=== PATIENT | female | born 1950 | race Caucasian/White ===

== ENCOUNTER 2021-04-15 06:03 | Day surgery (SDC) | payer BC ==
[2021-04-10 10:23] VITALS: BMI 25.7
[2021-04-15] MEDS ORDERED: SODIUM CHLORIDE 0.9% P/F 10 ML VIAL IJ ONE (06:49)
[2021-04-15] MEDS ORDERED: MIDAZOLAM HCL 2 MG/2 ML SINGLE DOSE VIAL ONE ×3 (06:49→08:26)
[2021-04-15] MEDS ORDERED: BUPIVACAINE HCL 50 ML ONE ×2 (06:49→07:11)
[2021-04-15] MEDS ORDERED: BUPIVACAINE LIPOSOME/PF (EXPAREL) 266 MG/20 ML VIAL ONE (06:49)
[2021-04-15] MEDS ORDERED: TRANEXAMIC ACID 1000 MG/10 ML VIAL IVPUSH ONE (06:54)
[2021-04-15] MEDS ORDERED: CEFAZOLIN 2 GM in DEXTROSE 5%-WATER - 50 ML IVPB ONE (06:54)
[2021-04-15] MEDS ORDERED: CELECOXIB 200 MG CAPSULE PO ONE (06:54)
[2021-04-15] MEDS ORDERED: fentaNYL CITRATE 250 MCG/5 ML VIAL ONE (07:06)
[2021-04-15] MEDS ORDERED: PROPOFOL 20 ML ONE ×3 (07:07)
[2021-04-15] MEDS ORDERED: VANCOMYCIN 1,000 MG VIAL (RESTRICTED TO ID ONLY) ONE (07:14)
[2021-04-15] MEDS ORDERED: ceFAZolin SODIUM 1 GM VIAL ONE ×3 (07:15→23:17)
[2021-04-15] MEDS ORDERED: TRANEXAMIC ACID 1000 MG/10 ML VIAL ONE ×2 (08:40→09:57)
[2021-04-15] MEDS ORDERED: KETOROLAC TROMETHAMINE 30 MG/1 ML VIAL ONE ×2 (08:40→10:06)
[2021-04-15] MEDS ORDERED: ONDANSETRON 4 MG/2 ML VIAL ONE (08:40)
[2021-04-15] MEDS ORDERED: DEXAMETHASONE SOD PHOSPHATE 4 MG/1 ML VIAL ONE (08:40)
[2021-04-15] MEDS ORDERED: ACETAMINOPHEN INJECTION 100 ML IVPB ONE (10:06)
[2021-04-15] MEDS ORDERED: ONDANSETRON 4 MG/2 ML VIAL IVPUSH PRN ×3 (10:19→19:34)
[2021-04-15] MEDS ORDERED: MAG HYDROX/AL HYDROX/SIMETH 30 ML UNIT-DOSE CUP PO PRN (10:19)
[2021-04-15] MEDS ORDERED: LACTATED RINGERS SOLUTION 1,000 ML IV SCH ×2 (10:30→10:45)
[2021-04-15] MEDS: ACETAMINOPHEN 1000 MG/100 ML BAG IVPB ONE ×2 (10:40→21:31)
[2021-04-15] MEDS: CEFAZOLIN 2 GM in DEXTROSE 5%-WATER - 50 ML IVPB SCH (16:17)
[2021-04-15] MEDS: ACETAMINOPHEN 500 MG TABLET (FP) PO SCH (17:28)
[2021-04-15] MEDS: KETOROLAC TROMETHAMINE 30 MG/1 ML VIAL IVPUSH SCH ×2 (18:45)
[2021-04-15] MEDS: HYDROmorphone HCL/PF 1 MG/ML VIAL IVPB PRN (20:25)
[2021-04-15] MEDS: SENNOSIDES/DOCUSATE COMBO (SENNA PLUS) TABLET (UD) PO SCH (21:31)
[2021-04-15] MEDS ORDERED: DEXTROSE 5%-WATER - 50 ML IVPB ONE (23:17)
[2021-04-16] MEDS: CEFAZOLIN 2 GM in DEXTROSE 5%-WATER - 50 ML IVPB SCH
[2021-04-16] MEDS: HYDROmorphone HCL/PF 1 MG/ML VIAL IVPB PRN ×2 (04:30→08:15)
[2021-04-16] MEDS: ACETAMINOPHEN 500 MG TABLET (FP) PO SCH ×4 (05:00→12:02)
[2021-04-16 07:01] VITALS: BP 115/95; PULSE 82; TEMP 97.7
[2021-04-16] MEDS ORDERED: ASPIRIN 325 MG TABLET PO SCH (08:00)
[2021-04-16 08:59] LABS: HEMATOCRIT 28.5 % (32.4-45.2); HEMOGLOBIN 9.7 GM/dL (10.7-15.3); MCH 32.9 pg (25.7-33.7); MEAN CELL VOLUME 96.9 fl (80-96); MEAN PLT VOLUME 7.9 fl (7.5-11.1); PLATELET COUNT 301 10^3/uL (134-434); RBC 2.94 M/mm3 (3.60-5.2); RDW 13.9 % (11.6-15.6); WHITE BLOOD COUNT 8.6 K/mm3 (4.0-10.0)
[2021-04-16] MEDS ORDERED: HYDROmorphone HCL/PF 1 MG/ML VIAL IVPUSH PRN (09:34)
[2021-04-16] MEDS ORDERED: PANTOPRAZOLE 40 MG TABLET PO SCH (10:00)
[2021-04-16] MEDS ORDERED: PATIENT'S OWN MEDICATION (NON-FORMULARY) (Amphet Asp/Amphet/D-Amphet [Adderall 10 Mg Table PO SCH (10:00)
[2021-04-16] MEDS ORDERED: buPROPion HCL 75 MG TABLET PO SCH ×2 (10:00)
[2021-04-16] MEDS ORDERED: MULTIVITAMINS (DAILY MVI) TABLET (FP) PO SCH (10:00)
[2021-04-16] MEDS ORDERED: VILAZODONE HYDROCHLORIDE 10 MG TABLET PO SCH (10:00)
[2021-04-16] MEDS: SENNOSIDES/DOCUSATE COMBO (SENNA PLUS) TABLET (UD) PO SCH (10:16)
== END 2021-04-16 13:59 | disposition home health service (06) ==
LOC: FASUSAT 06:03 → EDSTATUS 08:00 → FM/S 13:01 → FASUSAT 04-16 13:59
PROVIDERS: ATTEND Orthopaedic Surgery
PROC: 8E0YXBZ Computer Assisted Procedure of Lower Extremity (ICD-10-PCS; 2021-04-15)
PROC: 8E0Y0CZ Robotic Assisted Procedure of Lower Extremity, Open Approach (ICD-10-PCS; 2021-04-15)
PROC: 0SRD0J9 Replacement of Left Knee Joint with Synthetic Substitute, Cemented, Open Approach (ICD-10-PCS; principal; 2021-04-15 08:46)
DX: M17.12 Unilateral primary osteoarthritis, left knee (principal)
CPT/HCPCS: 20985; 27447; C1776; S2900; 36415; 73560-TC-LT-FY; 85027; 94760; 97010-GP; 97116-GP; 97161-GP